=== PATIENT | female | born 2000 | race Caucasian/White ===

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

== ENCOUNTER 2020-03-16 05:34 | Inpatient (IN) | payer MEDICAID ==
[2020-03-16] MEDS ORDERED: Oxytocin 10 Units/1 ML SDV ONE ×2 (06:39→07:29)
[2020-03-16] MEDS ORDERED: Dexamethasone 4 MG/ML SDV ONE (08:28)
[2020-03-16] MEDS ORDERED: Ondansetron 4 MG/2 ML SDV ONE (08:28)
[2020-03-16] MEDS: Lactated Ringers 1,000 ML IV SCH ×2 (08:32→11:15)
[2020-03-16] MEDS ORDERED: fentaNYL 250 MCG/5 ML SDV ONE (08:36)
[2020-03-16] MEDS ORDERED: Sennosides 8.6 MG Tab PO PRN (08:50)
[2020-03-16] MEDS ORDERED: diphenhydrAMINE 50 MG/ML SDV IVPUSH PRN (08:50)
[2020-03-16] MEDS ORDERED: Naloxone 0.4 MG/ML SDV IVPUSH PRN (08:50)
[2020-03-16] MEDS ORDERED: ePHEDrine 50 MG/ML SDV IVPUSH PRN (08:50)
[2020-03-16] MEDS ORDERED: Bisacodyl 10 MG Supp RECTAL PRN (08:50)
[2020-03-16] MEDS ORDERED: Hydrocortisone 2.5% Crm 30 GM Tube TOP ONE (08:50)
[2020-03-16] MEDS ORDERED: Ondansetron 4 MG Tab.DIS PO PRN (08:50)
[2020-03-16] MEDS ORDERED: Simethicone 80 MG Tab.Chew PO PRN (08:50)
[2020-03-16] MEDS ORDERED: cefOXitin 2 GM Vial ONE (08:57)
[2020-03-16] MEDS ORDERED: ePHEDrine 50 MG/ML SDV ONE (08:58)
[2020-03-16] MEDS ORDERED: fentaNYL 100 MCG/2 ML SDV IVPUSH ONE (09:24)
[2020-03-16] MEDS ORDERED: Benzocaine 20% Top Spray 56 GM Bottle TOP ONE (09:30)
[2020-03-16] MEDS ORDERED: Lanolin 100% Cream 40 GM Tube TOP ONE (09:30)
[2020-03-16] MEDS ORDERED: Witch Hazel Medicated Pads 100/Jar TOP ONE (09:30)
[2020-03-16] MEDS: Acetaminophen/HYDROcodone 325-5 MG Tab PO PRN ×4 (10:09→23:14)
[2020-03-16] MEDS: Ibuprofen 800 MG Tab PO PRN ×2 (11:21→19:29)
[2020-03-16] MEDS: Prenatal Multivitamin with Calcium/Folic Acid/Iron Tab PO SCH (11:46)
--- NOTE | 2020-03-16 12:15 | OR ---
DATE OF PROCEDURE: 03/16/2020 SURGEON: Nico Dennis MD PROCEDURE: Repeat section. OSTRICH FARM WORKER: Hoa Adam CNM. COMPLICATIONS: None. OSTRICH FARM WORKER: None. PREOPERATIVE DIAGNOSIS: Requirement for repeat . POSTOPERATIVE DIAGNOSIS: Requirement for repeat . RISKS: Risks, benefits, alternatives, and limitations including, but not limited to, infection, bleeding, and injury to bladder, bowel, baby, and other risks not listed here were explained to the patient who wished to proceed. PROCEDURE IN DETAIL: The patient was placed in supine position. The previous Pfannenstiel type incision was opened with a 15 blade. This was carried down with electrocautery to and through the fascia. The fascia was then elevated with Reanna clamps and mobilized superiorly and inferiorly. The rectus sheath and its linea alba were identified, opened sharply, and using muscle sparing technique, enlarged. The bladder was deflected inferiorly. Bladder blade would be used to protect the bladder in the remaining part of this procedure. The uterus was entered bluntly using a Conchis clamp. A finger was placed between the baby and the uterus and electrocautery was used to enlarge the uterus. The baby was delivered without difficulty. The placenta was then delivered after cord blood was sent for sampling. Pitocin was given. The uterus was then closed with #1 Vicryl in a running suture x2. Counts were correct. Lap and needle counts were correct at this point. The abdomen was thoroughly irrigated. The fascia was closed with #1 Vicryl x2. Subcutaneous tissues were thoroughly irrigated. Skin was closed with 4-0 Vicryl. The patient tolerated the procedure well. Nico Dennis MD /[id number]
[2020-03-17] MEDS: Lactated Ringers 1,000 ML IV SCH (01:59)
[2020-03-17] MEDS: Acetaminophen/HYDROcodone 325-5 MG Tab PO PRN ×3 (03:18→13:53)
[2020-03-17] MEDS: Ibuprofen 800 MG Tab PO PRN ×2 (03:18→13:05)
[2020-03-17] MEDS: Prenatal Multivitamin with Calcium/Folic Acid/Iron Tab PO SCH (08:02)
--- NOTE | 2020-03-17 11:10 | PN ---
DATE OF SERVICE: 03/17/2020 SUBJECTIVE: The patient is doing very well. Pain is well controlled. No nausea, vomiting, shortness of breath, or chest pain. OBJECTIVE: VITAL SIGNS: Stable. CARDIOVASCULAR: Regular rhythm and rate. RESPIRATORY: Lungs clear to auscultation bilaterally. SKIN: Incision healing well. ASSESSMENT: Status post . PLAN: We will continue to work on diet today. Work on activity. Her Aguilar catheter has been removed. We will saline lock her. Continue to work with the onsite health coach service. Nico Dennis MD /[id number]
[2020-03-17 15:09] VITALS: BP 124/72; PULSE 95
== END 2020-03-17 15:06 | disposition home or self-care (01) | DRG 788 ==
LOC: JP.SDS 05:34 → JP.MS 08:16
PROVIDERS: ADMIT Surgery; ATTEND Surgery
PROC: 10D00Z1 Extraction of Products of Conception, Low, Open Approach (ICD-10-PCS; principal; 2020-03-16)
DX: O34.211 Maternal care for low transverse scar from previous cesarean delivery (principal); Z3A.39 39 weeks gestation of pregnancy; Z37.0 Single live birth; O99.344 Other mental disorders complicating childbirth; F41.9 Anxiety disorder, unspecified
CPT/HCPCS: 36415; 59409; 80048; 80305-QW; 85025; 86850; 86900; 86901; 88307; A9270-GY; J0694; J1100; J1790; J2405; J2590; J3010; J7120

== ENCOUNTER 2023-10-27 17:15 | Emergency (ER) | payer MEDICAID ==
[2023-10-27 17:51] VITALS: BP 122/81; PULSE 112
[2023-10-27] MEDS ORDERED: Ondansetron 4 MG Tab.DIS PO ONE (18:25)
[2023-10-27 18:37] LABS: BASOPHILS ABSOLUTE AUTO 0.04 K/uL (0.00-0.10); BASOPHILS PERCENT AUTO 0.2 % (0.1-1.3); EOSINOPHILS ABSOLUTE AUTO 0.02 K/uL (0.00-0.40); EOSINOPHILS PERCENT AUTO 0.1 % (0.0-5.4); HEMATOCRIT 44.5 % (34.3-46.0); HEMOGLOBIN 15.1 g/dL (11.2-15.5); IMMATURE GRAN ABSOLUTE AUTO 0.06 K/uL (0.00-0.23); IMMATURE GRAN PERCENT AUTO 0.3 % (0.0-0.7); LYMPHOCYTES ABSOLUTE AUTO 0.84 K/uL (0.8-3.3); LYMPHOCYTES PERCENT AUTO 4.5 % (11.4-47.7); MEAN CORPUSCULAR HEMOGLOBIN 28.7 pg (31.6-35.5); MEAN CORPUSCULAR HGB CONC 33.9 g/dL (31.6-35.5); MEAN CORPUSCULAR VOLUME 84.6 fL (81.4-99.0); MONOCYTES ABSOLUTE AUTO 0.65 K/uL (0.20-0.90); MONOCYTES PERCENT AUTO 3.5 % (3.3-12.6); NEUTROPHILS ABSOLUTE AUTO 16.86 K/uL (1.0-7.6); NEUTROPHILS PERCENT AUTO 91.4 % (40.0-78.1); PLATELET COUNT,PLT 306 K/uL (130-375); RED BLOOD CELL COUNT 5.26 M/uL (3.77-5.24); WHITE BLOOD CELL COUNT,WBC 18.5 K/uL (3.2-11.0)
[2023-10-27 18:52] LABS: INFLUENZA A NAA NEGATIVE (NEGATIVE); INFLUENZA B NAA NEGATIVE (NEGATIVE); RESPIRATORY SYNCYTIAL VIR NAA NEGATIVE (NEGATIVE)
[2023-10-27 18:53] LABS: CORONAVIRUS COVID-19 NAA POSITIVE (NEGATIVE)
[2023-10-27 18:54] LABS: ANION GAP 16.4 mmol/L (5.0-14.0); BLOOD UREA NITROGEN,BUN 16 mg/dL (7-18); C-REACTIVE PROTEIN < 0.50 mg/dL (<0.50); CALCIUM 9.5 mg/dL (8.5-10.1); CARBON DIOXIDE,CO2 24 mmol/L (21-32); CHLORIDE,CL 102 mmol/L (100-108); EST CRCL DRUG DOSING (CG) 65.46 mL/min; ESTIMATED GFR 81 mL/min (>60); GLUCOSE RANDOM 108 mg/dL (74-106); POTASSIUM,K 3.4 mmol/L (3.6-5.2); SODIUM,NA 139 mmol/L (140-148)
== END 2023-10-27 20:40 | disposition home or self-care (01) ==
LOC: JP.ED 17:15
DX: U07.1 COVID-19 (principal); J20.8 Acute bronchitis due to other specified organisms; F17.210 Nicotine dependence, cigarettes, uncomplicated; J45.909 Unspecified asthma, uncomplicated; Z79.899 Other long term (current) drug therapy
CPT/HCPCS: 0241U; 36415; 71046; 71046-26; 80048; 85025; 86140; 99285; Q0162

== ENCOUNTER 2023-11-06 23:06 | Emergency (ER) | payer MEDICAID ==
[2023-11-07] MEDS ORDERED: Sodium Chloride 0.9% 1,000 ML IV ONE (00:30)
[2023-11-07] MEDS ORDERED: Ondansetron 4 MG/2 ML SDV IVPUSH ONE (00:31)
[2023-11-07] MEDS ORDERED: Albuterol/Ipratropium 3.0-0.5 MG/3 ML Neb Soln NEB ONE (00:31)
[2023-11-07 00:40] LABS: BASOPHILS ABSOLUTE AUTO 0.05 K/uL (0.00-0.10); BASOPHILS PERCENT AUTO 0.4 % (0.1-1.3); EOSINOPHILS ABSOLUTE AUTO 0.06 K/uL (0.00-0.40); EOSINOPHILS PERCENT AUTO 0.5 % (0.0-5.4); HEMOGLOBIN 14.1 g/dL (11.2-15.5); IMMATURE GRAN ABSOLUTE AUTO 0.09 K/uL (0.00-0.23); IMMATURE GRAN PERCENT AUTO 0.8 % (0.0-0.7); LYMPHOCYTES ABSOLUTE AUTO 2.53 K/uL (0.8-3.3); LYMPHOCYTES PERCENT AUTO 21.7 % (11.4-47.7); MEAN CORPUSCULAR HGB CONC 34.4 g/dL (31.6-35.5); MEAN CORPUSCULAR VOLUME 84.2 fL (81.4-99.0); MONOCYTES ABSOLUTE AUTO 0.53 K/uL (0.20-0.90); MONOCYTES PERCENT AUTO 4.5 % (3.3-12.6); NEUTROPHILS ABSOLUTE AUTO 8.42 K/uL (1.0-7.6); NEUTROPHILS PERCENT AUTO 72.1 % (40.0-78.1); PLATELET COUNT,PLT 306 K/uL (130-375); RED BLOOD CELL COUNT 4.87 M/uL (3.77-5.24); WHITE BLOOD CELL COUNT,WBC 11.7 K/uL (3.2-11.0)
[2023-11-07 01:01] LABS: A/G RATIO 1.2 (1.2-2.2); ALANINE AMINOTRANSFERASE,ALT 38 U/L (12-78); ALBUMIN 4.1 g/dL (3.4-5.0); ALKALINE PHOSPHATASE 41 U/L (46-116); ANION GAP 15.2 mmol/L (5.0-14.0); ASPARTATE AMNIOTRANSFERASE,AST 21 U/L (15-37); BILIRUBIN TOTAL 0.5 mg/dL (0.2-1.0); BLOOD UREA NITROGEN,BUN 12 mg/dL (7-18); CALCIUM 8.6 mg/dL (8.5-10.1); CARBON DIOXIDE,CO2 22 mmol/L (21-32); CHLORIDE,CL 104 mmol/L (100-108); CREATININE 0.6 mg/dL (0.6-1.0); ESTIMATED GFR 128 mL/min (>60); GLUCOSE RANDOM 82 mg/dL (74-106); POTASSIUM,K 3.8 mmol/L (3.6-5.2); PROTEIN TOTAL,TP 7.4 g/dL (6.4-8.2); SODIUM,NA 141 mmol/L (140-148)
[2023-11-07 01:04] LABS: C-REACTIVE PROTEIN < 0.50 mg/dL (<0.50)
[2023-11-07 01:19] VITALS: PULSE 79
[2023-11-07 02:09] VITALS: BP 102/63
[2023-11-07 02:12] LABS: APPEARANCE,URINE SLIGHTLY CLOUDY (CLEAR); BILIRUBIN,URINE NEGATIVE (NEGATIVE); COLOR,URINE YELLOW (YELLOW); GLUCOSE,URINE NEGATIVE (NEGATIVE); KETONES,URINE 15 mg/dL (NEGATIVE); LEUKOCYTE ESTERASE,URINE NEGATIVE (NEGATIVE); NITRITE,URINE NEGATIVE (NEGATIVE); OCCULT BLOOD,URINE NEGATIVE (NEGATIVE); PROTEIN,URINE NEGATIVE (NEGATIVE); UROBILINOGEN,URINE 0.2 EU/dL (0.2-1.0)
[2023-11-07 02:18] LABS: AMORPHOUS SEDIMENT,URINE NOT SEEN; BACTERIA,URINE FEW; EPITHELIAL CELLS,URINE MODERATE; MUCUS,URINE MODERATE; RBC,URINE 0-5 (0-5); WBC,URINE 0-5 (0-5)
== END 2023-11-07 02:30 | disposition home or self-care (01) ==
LOC: JP.ED 23:06
DX: E86.0 Dehydration (principal); J45.909 Unspecified asthma, uncomplicated; Z72.820 Sleep deprivation; Z79.899 Other long term (current) drug therapy
CPT/HCPCS: 36415; 71046; 80053; 81001; 83605; 85025; 86140; 93005; 94640; 96361; 96374; 99284; J2405; J7030; J7620

== ENCOUNTER 2024-03-12 08:25 | Emergency (ER) | payer MEDICAID ==
[2024-03-12 08:49] VITALS: BP 129/70; PULSE 72
[2024-03-12] MEDS: Dextrose 5%-0.9% NaCl 1,000 ML IV SCH (09:00)
[2024-03-12] MEDS: Ondansetron 4 MG/2 ML SDV IVPUSH ONE (09:22)
[2024-03-12 09:28] LABS: BASOPHILS ABSOLUTE AUTO 0.04 K/uL (0.00-0.10); BASOPHILS PERCENT AUTO 0.3 % (0.1-1.3); EOSINOPHILS ABSOLUTE AUTO 0.05 K/uL (0.00-0.40); EOSINOPHILS PERCENT AUTO 0.3 % (0.0-5.4); HEMATOCRIT 36.3 % (34.3-46.0); HEMOGLOBIN 12.6 g/dL (11.2-15.5); IMMATURE GRAN ABSOLUTE AUTO 0.07 K/uL (0.00-0.23); IMMATURE GRAN PERCENT AUTO 0.5 % (0.0-0.7); LYMPHOCYTES ABSOLUTE AUTO 1.46 K/uL (0.8-3.3); LYMPHOCYTES PERCENT AUTO 9.7 % (11.4-47.7); MEAN CORPUSCULAR HEMOGLOBIN 29.4 pg (31.6-35.5); MEAN CORPUSCULAR HGB CONC 34.7 g/dL (31.6-35.5); MEAN CORPUSCULAR VOLUME 84.6 fL (81.4-99.0); MONOCYTES ABSOLUTE AUTO 0.52 K/uL (0.20-0.90); MONOCYTES PERCENT AUTO 3.4 % (3.3-12.6); NEUTROPHILS ABSOLUTE AUTO 12.95 K/uL (1.0-7.6); NEUTROPHILS PERCENT AUTO 85.8 % (40.0-78.1); PLATELET COUNT,PLT 229 K/uL (130-375); RED BLOOD CELL COUNT 4.29 M/uL (3.77-5.24); WHITE BLOOD CELL COUNT,WBC 15.1 K/uL (3.2-11.0)
[2024-03-12 09:30] LABS: APPEARANCE,URINE CLOUDY (CLEAR); BILIRUBIN,URINE NEGATIVE (NEGATIVE); COLOR,URINE YELLOW (YELLOW); GLUCOSE,URINE NEGATIVE (NEGATIVE); KETONES,URINE 15 mg/dL (NEGATIVE); LEUKOCYTE ESTERASE,URINE NEGATIVE (NEGATIVE); NITRITE,URINE NEGATIVE (NEGATIVE); OCCULT BLOOD,URINE NEGATIVE (NEGATIVE); PH,URINE 7.5 (5.0-8.0); PROTEIN,URINE NEGATIVE (NEGATIVE); UROBILINOGEN,URINE 0.2 EU/dL (0.2-1.0)
[2024-03-12 09:40] LABS: AMORPHOUS SEDIMENT,URINE MANY; BACTERIA,URINE FEW; EPITHELIAL CELLS,URINE MODERATE; MUCUS,URINE MODERATE; RBC,URINE NOT SEEN (0-5); WBC,URINE 0-5 (0-5)
[2024-03-12 09:43] LABS: CREATININE 0.6 mg/dL (0.6-1.0); EST CRCL DRUG DOSING (CG) 109.1 mL/min; POTASSIUM,K 3.7 mmol/L (3.6-5.2)
[2024-03-12 09:50] LABS: ANION GAP 12.7 mmol/L (5.0-14.0)
== END 2024-03-12 11:15 | disposition home or self-care (01) ==
LOC: JP.ED 08:25
DX: O21.0 Mild hyperemesis gravidarum (principal); O99.512 Diseases of the respiratory system complicating pregnancy, second trimester; J45.909 Unspecified asthma, uncomplicated; Z86.16 Personal history of COVID-19; Z79.51 Long term (current) use of inhaled steroids; Z79.899 Other long term (current) drug therapy; Z3A.16 16 weeks gestation of pregnancy
CPT/HCPCS: 36415; 80048; 81001; 85025; 96361; 96374; 99284; J2405